=== PATIENT | male | born 1985 | race Caucasian/White ===

== ENCOUNTER 2023-05-02 16:20 | Inpatient (IN) | payer OTHER ==
[2023-05-02 16:52] VITALS: RESP 16
--- NOTE | 2023-05-02 21:33 | ED ---
General Adult HPI - General Source: patient, police, RN notes reviewed, old records reviewed Mode of arrival: ambulatory Limitations: no limitations <Ricardo Serra - Last Filed: 05/02/23 21:32> <Armand Young - Last Filed: 05/03/23 12:43> - General Chief complaint: Psychiatric Symptoms Stated complaint: Suicidal Time Seen by Provider: 05/02/23 21:00 - History of Present Illness Initial comments: 37-year-old male presents for psychiatric evaluation. Patient is hearing voices and had a suicide attempt. He has been petitioned by staff from the local [facility] where he has been for the past approximately 2 weeks. Patient had attempted to hang himself with a bedsheet. He denies physical complaints at the time my evaluation. No neck pain. He is actively eating [employer] at the time my evaluation. (Ricardo Serra) - Related Data Allergies Allergy/AdvReac Type Severity Reaction Status Date / Time No Known Allergies Allergy Verified 05/02/23 23:01 Review of Systems ROS Other: All systems not noted in ROS Statement are negative. <Ricardo Serra - Last Filed: 05/02/23 21:32> ROS Other: All systems not noted in ROS Statement are negative. <Armand Young - Last Filed: 05/03/23 12:43> ROS Statement: Those systems with pertinent positive or pertinent negative responses have been documented in the HPI. Past Medical History Past Medical History: No Reported History Past Surgical History: No Surgical Hx Reported Past Psychological History: ADD/ADHD, Bipolar, Depression Smoking Status: Current every day smoker <Ricardo Srera - Last Filed: 05/02/23 21:32> General Exam Limitations: no limitations General appearance: alert, in no apparent distress Head exam: Present: atraumatic, normocephalic Eye exam: Present: normal appearance, PERRL ENT exam: Present: normal exam Neck exam: Present: normal inspection, full ROM, other (No carotid bruit, no ecchymosis, no external signs of trauma). Absent: tenderness Respiratory exam: Present: normal lung sounds bilaterally. Absent: respiratory distress, wheezes Cardiovascular Exam: Present: regular rate, normal rhythm GI/Abdominal exam: Present: soft. Absent: distended, tenderness, guarding Neurological exam: Present: alert, oriented X3, CN II-XII intact. Absent: motor sensory deficit Psychiatric exam: Present: anxious, suicidal ideation Skin exam: Present: warm, dry, intact <Ricardo Serra Margo - Last Filed: 05/02/23 21:32> Course <Ricardo Serra Margo - Last Filed: 05/02/23 21:32> Vital Signs 05/02/23 16:26 Temperature 98.4 F Pulse Rate 89 Respiratory 16 Rate Blood Pressure 96/60 O2 Sat by Pulse 99 Oximetry - Reevaluation(s) Reevaluation #1: 05/02/23 21:33 Cleared for EPS (Ricardo Serra) Medical Decision Making <MaryseRicardo Aragon - Last Filed: 05/02/23 21:32> <Armand Young - Last Filed: 05/03/23 12:43> - Medical Decision Making Was pt. sent in by a medical professional or institution (, PA, COFFEE HOST, urgent care, hospital, or fci...) When possible be specific @ -[No] Did you speak to anyone other than the patient for history (EMS, parent, family, police, friend...)? What history was obtained from this source @ -[No] Did you review nursing and triage notes (agree or disagree)? Why? @ -[I reviewed and agree with nursing and triage notes] Were old charts reviewed (outside hosp., previous admission, EMS record, old EKG, old radiological studies, urgent care reports/EKG's, fci records)? Report findings @ -[No old charts were reviewed] Differential Diagnosis (chest pain, altered mental status, abdominal pain women, abdominal pain men, vaginal bleeding, weakness, fever, dyspnea, syncope, headache, dizziness, GI bleed, back pain, seizure, CVA, palpatations, mental health, musculoskeletal)? @ -Differential Mental Health Depression, anxiety, bipolar, psychosis, schizophrenia, borderline personality, situational depression, adjustment disorder, behavioral disorder, brain tumor, malingering, substance abuse, encephalopathy, medication reaction, dementia, hypothyroidism, degenerative neurologic disorder, lupus.... This is not meant to be all-inclusive list EKG interpreted by me (3pts min.). @ -[As above] X-rays interpreted by me (1pt min.). @ -[None done] CT interpreted by me (1pt min.). @ -[None done] U/S interpreted by me (1pt. min.). @ -[None done] What testing was considered but not performed or refused? (CT, X-rays, U/S, labs)? Why? @ -[None] What meds were considered but not given or refused? Why? @ -[None] Did you discuss the management of the patient with other professionals (professionals i.e. , PA, COFFEE HOST, lab, RT, psych nurse, social media marketing specialist, attorney lawyer, teacher, telecommunications officer, caseworker protective services)? Give summary @ -[No] Was smoking cessation discussed for >3mins.? @ -[No] Was critical care preformed (if so, how long)? @ -[No] Were there social determinants of health that impacted care today? How? (Homelessness, low income, unemployed, alcoholism, drug addiction, transportation, low edu. Level, literacy, decrease access to med. care, [facility], rehab)? @ -[No] Was there de-escalation of care discussed even if they declined (Discuss DNR or withdrawal of care, Hospice)? DNR status @ -[No] What co-morbidities impacted this encounter? (DM, HTN, Smoking, COPD, CAD, Cancer, CVA, ARF, Chemo, Hep., AIDS, mental health diagnosis, sleep apnea, morbid obesity)? @ -[None] Was patient admitted / discharged? Hospital course, mention meds given and route, prescriptions, significant lab abnormalities, going to OR and other pertinent info. @ -[hospital course] Undiagnosed new problem with uncertain prognosis? @ -[No] Drug Therapy requiring intensive monitoring for toxicity (Heparin, Nitro, Insulin, Cardizem)? @ -[No] Were any procedures done? @ -[No] Diagnosis/symptom? @ -[default] Acute, or Chronic, or Acute on Chronic? @ -[default] Uncomplicated (without systemic symptoms) or Complicated (systemic symptoms)? @ -[default] Side effects of treatment? @ -[No] Exacerbation, Progression, or Severe Exacerbation? @ -[No] Poses a threat to life or bodily function? How? (Chest pain, [place], [place], pneumonia, PE, COPD, DKA, ARF, appy, cholecystitis, CVA, Diverticulitis, Homicidal, Suicidal, threat to staff... and all critical care pts) @ -[No] (Ricardo Serra) Patient is a 37-year-old male that was pending psychiatric evaluation. Medically cleared by prior provider. Presented for suicide attempt. [facility] from [facility] when he attempted to [facility] himself with a sheet. EPS evaluated the patient and determined that he does meet inpatient criteria. Clinical certificate was completed by myself. Patient will be admitted to inpatient psychiatry. Diagnosis/symptom? @ -Suicidal behavior Acute, or Chronic, or Acute on Chronic? @ -Acute Uncomplicated (without systemic symptoms) or Complicated (systemic symptoms)? @ -Complicated Side effects of treatment? @ -None Exacerbation, Progression, or Severe Exacerbation] @ -No Poses a threat to life or bodily function? @ -Yes (Armand Yuong) - Lab Data Lab Results 05/03/23 Range/Units 00:00 Urine Opiates Screen Not Detected (NotDetected) Ur Oxycodone Screen Not Detected (NotDetected) Urine Methadone Screen Not Detected (NotDetected) Ur Barbiturates Screen Not Detected (NotDetected) U Tricyclic Antidepress Not Detected (NotDetected) Ur Phencyclidine Scrn Not Detected (NotDetected) Ur Amphetamines Screen Detected H (NotDetected) U Methamphetamines Scrn Detected H (NotDetected) U Benzodiazepines Scrn Not Detected (NotDetected) Urine Cocaine Screen Not Detected (NotDetected) U Marijuana (THC) Screen Not Detected (NotDetected) Disposition <Ricardo Serra - Last Filed: 05/02/23 21:32> Time of Disposition: 11:40 <Armand Young - Last Filed: 05/03/23 12:43> Clinical Impression: Suicidal behavior Disposition: ADMITTED IP TO THIS [facility] Condition: Stable Referrals: None,Stated [Primary Care Provider] - 1-2 days
[2023-05-03] MEDS: ONDANSETRON ODT 4 MG TAB PO STA (00:34)
[2023-05-03] MEDS: FAMOTIDINE 20 MG TAB PO STA (00:34)
[2023-05-03 00:46] LABS: Amphetamine Screen,Urine Detected (NotDetected); Barbiturate Screen,Urine Not Detected (NotDetected); Benzodiazepines Screen,Urine Not Detected (NotDetected); Cocaine Screen,Urine Not Detected (NotDetected); Methadone Screen, Urine Not Detected (NotDetected); Opiate Screen,Urine Not Detected (NotDetected); Oxycodone Screen, Urine Not Detected (NotDetected); Phencyclidine Screen,Urine Not Detected (NotDetected); Tricyclic Antidepressant,Urine Not Detected (NotDetected); Urn Cannabinoid Scrn Not Detected (NotDetected)
[2023-05-03] MEDS: NICOTINE 21MG/24HR PATCH TRANSDERM STA (07:31)
[2023-05-03] MEDS: LORazepam 1 MG TAB PO STA (07:48)
[2023-05-03] MEDS: HALOPERIDOL LACTATE 5 MG/ML 1 ML VIAL IM STA (11:23)
[2023-05-03] MEDS: LORazepam 2 MG/ML INJ IM STA (11:23)
[2023-05-03 15:44] LABS: Basophils # (A) 0.1 k/uL (0-0.2); Basophils % (A) 1 %; Eosinophils # (A) 0.1 k/uL (0-0.7); Eosinophils % (A) 1 %; HCT 47.3 % (39.0-53.0); Lymphocytes # (A) 1.9 k/uL (1.0-4.8); Lymphocytes % (A) 29 %; MCH 29.8 pg (25.0-35.0); MCHC 33.7 g/dL (31.0-37.0); MCV 88.4 fL (80.0-100.0); Mean Platelet Volume 7.7; Monocytes # (A) 0.4 k/uL (0-1.0); Monocytes % (A) 6 %; Neutrophils # (A) 3.9 k/uL (1.3-7.7); Neutrophils % (A) 61 %; Platelet Count 254 k/uL (150-450); RBC 5.36 m/uL (4.30-5.90); RDW 12.4 % (11.5-15.5); WBC 6.5 k/uL (3.8-10.6)
[2023-05-03 16:02] LABS: ALT 44 U/L (4-49); African American GFR (CKD) >90 (>60 ml/min/1.73 sqM); Albumin 4.3 g/dL (3.5-5.0); Anion Gap 8 mmol/L; Blood Urea Nitrogen 13 mg/dL (9-20); Calcium 9.5 mg/dL (8.4-10.2); Carbon Dioxide 27 mmol/L (22-30); Chloride 104 mmol/L (98-107); Glucose 98 mg/dL (74-99); Non-African American GFR(CKD) >90 (>60 ml/min/1.73 sqM); Sodium 139 mmol/L (137-145); Total Protein 7.1 g/dL (6.3-8.2)
[2023-05-03 16:26] LABS: AST 36 U/L (17-59)
[2023-05-03 16:27] LABS: Alkaline Phosphatase 60 U/L (38-126)
[2023-05-03] MEDS ORDERED: MAG HYDROX/AL HYDROX/SIMETH 355 ML BOTTLE PO PRN (16:44)
[2023-05-03] MEDS ORDERED: MAGNESIUM HYDROXIDE 2,400 MG/30 ML CUP PO PRN (16:44)
[2023-05-03] MEDS ORDERED: IBUPROFEN 600 MG TAB PO PRN (16:44)
[2023-05-03] MEDS ORDERED: ACETAMINOPHEN TAB 325 MG TAB PO PRN (16:44)
[2023-05-04 03:55] LABS: Chol/HDL Ratio 4.35 Ratio; LDL Cholesterol,Calculated 145.1 mg/dL (0.0-131.0)
[2023-05-04] MEDS: NICOTINE 21MG/24HR PATCH TRANSDERM SCH (09:56)
--- NOTE | 2023-05-04 11:17 | P.HPMEDMHU ---
History of Present Illness H&P Date: 05/04/23 Patient is a who was brought to the emergency department from detention where he was hearing voices and had a suicide attempt. Apparently he has been in detention for approximately the last 2 weeks and attempted to hang himself with a bedsheet. He was subsequently admitted to the mental health unit. We are asked to see him for medical H&P. Patient seen and examined at bedside. He currently denies any chest pain, shortness of breath, nausea, vomiting, diarrhea. He states he takes no medicati ons on the outpatient basis and has no history of chronic medical conditions. He reports a past smoking a pack a day. He denies any alcohol use or illicit substance use. Vital signs reviewed General: nontoxic, no distress, appears at stated age Derm: warm, dry Eyes: EOMI, no lid lag, anicteric sclera, pupils equal round reactive to light ENT: Nose and ears atraumatic Cardiovascular: S1S2 reg, no murmur, no edema Lungs: clear to auscultation bilateral, no rhonchi, no rales, no wheeze, no accessory muscle use Abdominal: soft, nontender to palpation, no guarding Ext: no gross muscle atrophy, no contractures Neuro: CN II-XII grossly intact, No focal neuro deficits Psych: Lethargic and withdrawn. Refuses to open eyes. Mumbles his answers. Assessment/Plan: 37-year-old male admitted to the mental health unit for suicidal ideation -Patient's LDL cholesterol was 145 and total cholesterol was 224.24 - based on ASCVD risk calculator his baseline 10-year risk is less than 5% and therefore he can focus on lifestyle modifications -Patient does not need statin at this time Nicotine dependency -Continue with nicotine patch 21 mcg daily Polysubstance abuse -Your psych management Imaging: None Data Review: Reviewed CBC, CMP, cholesterol levels, urine drug screen which are remarkable for total cholesterol 224 and LDL 145. Urine drug screen positive for methamphetamines and amphetamines. Thank you for allowing us to participate in the care of this pleasant patient. Do not hesitate to contact us with questions. Someone can be reached from the [facility] [place] hospitalist group all hours of the day at [phone] or via perfect serve. This dictation was prepared using [employer] voice recognition software. Though every attempt is made to correct errors during dictation some may still exist. Past Medical History Past Medical History: No Reported History Past Surgical History: No Surgical Hx Reported Smoking Status: Current every day smoker Medications and Allergies Home Medications Medication Instructions Recorded Confirmed Type No Known Home Medications 05/02/23 05/02/23 History Allergies Allergy/AdvReac Type Severity Reaction Status Date / Time No Known Allergies Allergy Verified 05/02/23 23:01 Physical Exam Osteopathic Statement: *. No significant issues noted on an osteopathic structural exam other than those noted in the History and Physical/Consult. Vitals: Intake and Output 05/03/23 05/04/23 05/04/23 22:59 06:59 14:59 Other: Weight 89.086 kg Cranial Nerve Examination - Cranial Nerves Cranial Nerve II- Optic: Intact Cranial Nerve III- Oculomotor: Intact Cranial Nerve IV- Trochlear: Intact Cranial Nerve V- Trigeminal: Intact Cranial Nerve - Abducens: Intact Cranial Nerve VII- Facial: Intact Cranial Nerve VIII- Auditory: Intact Cranial Nerve IX- Glossopharyngeal: Intact Cranial Nerve X- Vagus: Intact Cranial Nerve XI- Accessory: Intact Cranial Nerve XII- Hypoglossal: Intact Results CBC & Chem 7: 05/03/23 15:12 05/03/23 15:12 Labs: Abnormal Lab Results - Last 24 Hours (Table) 05/03/23 Range/Units 15:12 Cholesterol 224.00 H (0.00-200.00) mg/dL LDL Cholesterol, Calc 145.1 H (0.0-131.0) mg/dL
--- NOTE | 2023-05-04 14:56 | P.HP ---
Psychiatric H&P - . H&P Date: 05/04/23 History & Physical: Allergies Allergy/AdvReac Type Severity Reaction Status Date / Time No Known Allergies Allergy Verified 05/02/23 23:01 Vital Signs Temp 98.4 F 05/02/23 16:26 Pulse 89 05/02/23 16:26 Resp 16 05/02/23 16:26 BP 96/60 05/02/23 16:26 Pulse Ox 99 05/02/23 16:26 FiO2 Intake & Output 05/03/23 05/04/23 05/04/23 18:59 06:59 18:59 Weight 89.086 kg Laboratory Last Values WBC 6.5 k/uL (3.8-10.6) 05/03/23 15:12 RBC 5.36 m/uL (4.30-5.90) 05/03/23 15:12 Hgb 16.0 gm/dL (13.0-17.5) 05/03/23 15:12 Hct 47.3 % (39.0-53.0) 05/03/23 15:12 MCV 88.4 fL (80.0-100.0) 05/03/23 15:12 MCH 29.8 pg (25.0-35.0) 05/03/23 15:12 MCHC 33.7 g/dL (31.0-37.0) 05/03/23 15:12 RDW 12.4 % (11.5-15.5) 05/03/23 15:12 Plt Count 254 k/uL (150-450) 05/03/23 15:12 MPV 7.7 05/03/23 15:12 Neutrophils % 61 % 05/03/23 15:12 Lymphocytes % 29 % 05/03/23 15:12 Monocytes % 6 % 05/03/23 15:12 Eosinophils % 1 % 05/03/23 15:12 Basophils % 1 % 05/03/23 15:12 Neutrophils # 3.9 k/uL (1.3-7.7) 05/03/23 15:12 Lymphocytes # 1.9 k/uL (1.0-4.8) 05/03/23 15:12 Monocytes # 0.4 k/uL (0-1.0) 05/03/23 15:12 Eosinophils # 0.1 k/uL (0-0.7) 05/03/23 15:12 Basophils # 0.1 k/uL (0-0.2) 05/03/23 15:12 Sodium 139 mmol/L (137-145) 05/03/23 15:12 Potassium 5.0 mmol/L (3.5-5.1) 05/03/23 15:12 Chloride 104 mmol/L (98-107) 05/03/23 15:12 Carbon Dioxide 27 mmol/L (22-30) 05/03/23 15:12 Anion Gap 8 mmol/L 05/03/23 15:12 BUN 13 mg/dL (9-20) 05/03/23 15:12 Creatinine 0.78 mg/dL (0.66-1.25) 05/03/23 15:12 Est GFR (CKD-EPI)AfAm >90 (>60 ml/min/1.73 sqM) 05/03/23 15:12 Est GFR (CKD-EPI)NonAf >90 (>60 ml/min/1.73 sqM) 05/03/23 15:12 Glucose 98 mg/dL (74-99) 05/03/23 15:[address] Glu mg/dL 120 mg/dL 05/03/23 15:12 Hemoglobin A1c 5.8 % (<=6.0) 05/03/23 15:12 Calcium 9.5 mg/dL (8.4-10.2) 05/03/23 15:12 Total Bilirubin 1.0 mg/dL (0.2-1.3) 05/03/23 15:12 AST 36 U/L (17-59) 05/03/23 15:12 ALT 44 U/L (4-49) 05/03/23 15:12 Alkaline Phosphatase 60 U/L (38-126) 05/03/23 15:12 Total Protein 7.1 g/dL (6.3-8.2) 05/03/23 15:12 Albumin 4.3 g/dL (3.5-5.0) 05/03/23 15:12 Triglycerides 137.00 mg/dL (0.00-149.00) 05/03/23 15:12 Cholesterol 224.00 mg/dL (0.00-200.00) H 05/03/23 15:12 LDL Cholesterol, Calc 145.1 mg/dL (0.0-131.0) H 05/03/23 15:12 VLDL Cholesterol, Calc 27.40 mg/dL (5.00-40.00) 05/03/23 15:12 HDL Cholesterol 51.50 mg/dL (40.00-60.00) 05/03/23 15:12 Cholesterol/HDL Ratio 4.35 Ratio 05/03/23 15:12 TSH 1.130 mIU/L (0.465-4.680) 05/03/23 15:12 Urine Opiates Screen Not Detected (NotDetected) 05/03/23 00:00 Ur Oxycodone Screen Not Detected (NotDetected) 05/03/23 00:00 Urine Methadone Screen Not Detected (NotDetected) 05/03/23 00:00 Ur Barbiturates Screen Not Detected (NotDetected) 05/03/23 00:00 U Tricyclic Antidepress Not Detected (NotDetected) 05/03/23 00:00 Ur Phencyclidine Scrn Not Detected (NotDetected) 05/03/23 00:00 Ur Amphetamines Screen Detected (NotDetected) H 05/03/23 00:00 U Methamphetamines Scrn Detected (NotDetected) H 05/03/23 00:00 U Benzodiazepines Scrn Not Detected (NotDetected) 05/03/23 00:00 Urine Cocaine Screen Not Detected (NotDetected) 05/03/23 00:00 U Marijuana (THC) Screen Not Detected (NotDetected) 05/03/23 00:00 Influenza Type A (PCR) Not Detected (Not Detectd) 05/03/23 15:12 Influenza Type B (PCR) Not Detected (Not Detectd) 05/03/23 15:12 RSV (PCR) Not Detected (Not Detectd) 05/03/23 15:12 SARS-CoV-2 (PCR) Not Detected (Not Detectd) 05/03/23 15:12 05/04/23 09:34 IDENTIFYING DATA: Patient is a 37-year-old male, currently homeless, coming from care home, is , he has 3 kids, he is unemployed. HPI: Patient presented to the hospital ED with a petition from the high school social science teacher at the care home. Patient allegedly attempted to hang himself while he was still in care home. Petition also states that patient was hearing voices as well. Patient apparently has a history of traumatic brain injury. He was not on any psychiatric medications, not having any psychiatric follow-up. Patient was admitted to the psychiatric unit involuntarily. Patient was seen today laying in bed, appeared to have a disheveled appearance, was fairly nonchalant. He wanted to speak to group underwriter in his room today. He was fairly concrete, evasive and minimizing his need for being in the hospital. States that he only believes he needs medications for "ADHD". Patient claims that he does not know why he is in the hospital, claims that he did try to hang himself in the care home however claims that he does not know why he did that. He does claim that he does have irritability and impulse control issues. He claims that he was feeling "so depressed" and claims that he was "going crazy" and blamed it on being "locked up". States that he does not have any severe stressors at this time. He was minimizing his depression and anxiety. He did claim that he was hearing voices however not any longer. States that his sleep and appetite have been fair. He claims that he does not feel that he needs any medications at this time and was requesting be discharged, very poor insight and judgment. Patient denies any suicidal or homicidal ideations intent or plan. At this time patient denies any auditory or visual hallucinations. Patient denies any flight of ideas racing thoughts and increased in goal directed behavior. Patient admits to using cigarettes only, denies any other recreational drug use. Urine drug screen is positive for amphetamines and methamphetamine. PAST PSYCHIATRIC HISTORY: Patient states that he has history of psychosis. Patient denies being on any psychiatric medications. Patient denies any previous psychiatric hospitalizations. Patient denies any psychiatric outpatient follow-up. Claims that he attempted to hang himself when he was a child. PMH:As per ER note ALLERGIES: as per EMR CHEMICAL DEPENDENCY HISTORY: as per HPI FAMILY PSYCHIATRIC/SUBSTANCE USE HISTORY: Claims that his mother has bipolar disorder. SOCIAL HISTORY: Patient was born and raised in [place]. Claims that he is currently homeless, he is unemployed. Claims that he is , he has 3 kids. He states that he was brought into care home and charged with not paying child support. MENTAL STATUS EXAM: General Appearance: Patient appears to be disheveled in appearance, unshaven, stated age is alert, minimizing, concrete, fairly uncooperative. Patient appears to have poor hygiene and grooming. Behavior: Patient is seated without any agitated behavior. Cooperative. Speech: Patient's speech is fluent and nonpressured. [place], evasive Mood/Affect: Patient reports their mood is depressed, affect is congruent and constricted. Suicidality/Homicidality: Patient denies having any homicidal ideation intent or plan. Denies any suicidal ideations intent or plan Perceptions: Patient denies any visual hallucinations and denies any auditory hallucinations Though content/process: There is no evidence of any delusional thought content and thought process is linear and goal-directed. Minimizing his mood and his need for psychiatric help Memory and concentration: AOX3, grossly intact for the purposes of this session. Can spell "WORLD" backwards Judgment and insight: Poor STRENGTHS/WEAKNESSES: strength is that patient is resilient. Weakness is that patient has poor judgment and is impulsive INTELLECT: Average IMPRESSIONS: Psychosis unspecified, rule out schizoaffective disorder versus major depressive disorder with psychotic features Nicotine dependance methamphetamine use disorder Legal problems PLAN: -Patient is admitted under involuntary status to MHU for stabilization of psychiatric symptoms and safety. Patient has not signed adult voluntary form and medication consent and is placed in patient's chart. A second certification was completed and along with petition will be filed for court. -Medications : Depakote 500 mg daily mood stabilization/aggression, Seroquel 50 mg nightly for mood stabilization/psychosis/insomnia. -Ativan and Haldol PRN for agitation/aggression -Patient was counselled on substance abuse and was minimizing his use, does not want to go to rehab. -Patient was informed of the risks, benefits and side effects of the medication -Internal Medicine consult to perform medical evaluation and physical. -NRT -nicotine patch -SW on board for discharge planning. Encourage patient to participate in groups to work on coping skills. Will await deferral and court date.
[2023-05-04] MEDS: DIVALPROEX ER 500 MG TAB.ER.24H PO SCH (15:55)
[2023-05-04] MEDS: QUEtiapine 50 MG TAB PO SCH (20:12)
[2023-05-05] MEDS: HALOPERIDOL LACTATE 5 MG/ML 1 ML VIAL IM PRN (08:44)
[2023-05-05] MEDS: LORazepam 2 MG/ML INJ IM PRN (08:45)
--- NOTE | 2023-05-05 11:31 | P.PN ---
Progress Note - Text Progress Note Date: 05/05/23 Interval History: Patient was seen at the bedside and was directable and agreeable to speak with news writer. There was an incident this morning where Mr. Baxter was called on the patient for violent behavior. At this time patient is sleeping, wakes fairly easily. Patient told news writer he does not want to be here, news writer explained the court process to the patient. Patient is refusing medications at this time. Patent denies any suicidal or homical ideations, intent or plan. Patient denies any auditory, visual hallucinations and denies any paranoia or delusions. Patient continues to be focused on discharge, very poor insight and judgment. MENTAL STATUS EXAM: General Appearance: Patient appears to be disheveled in appearance, unshaven, stated age is alert, minimizing, concrete, fairly uncooperative. Patient appears to have poor hygiene and grooming. Behavior: Patient is seated without any agitated behavior. Uncooperative. Speech: Patient's speech is fluent and nonpressured. [place], evasive, irritable Mood/Affect: Patient reports their mood is depressed, affect is congruent and constricted. Suicidality/Homicidality: Patient denies having any homicidal ideation intent or plan. Denies any suicidal ideations intent or plan Perceptions: Patient denies any visual hallucinations and denies any auditory hallucinations Though content/process: There is no evidence of any delusional thought content and thought process is linear and goal-directed. Minimizing his mood and his ne ed for psychiatric help, focused on discharge. Memory and concentration: AOX3, grossly intact for the purposes of this session. Judgment and insight: Poor IMPRESSIONS: Psychosis unspecified, rule out schizoaffective disorder versus major depressive disorder with psychotic features Nicotine dependance methamphetamine use disorder Legal problems PLAN: -Patient is admitted under involuntary status to [facility] for stabilization of psychiatric symptoms and safety. Patient has not signed adult voluntary form and medication consent and is placed in patient's chart. A second certification was completed and along with petition will be filed for court. -Medications : Depakote 500 mg daily mood stabilization/aggression, DC Seroquel and replace with Invega p.o. 3 mg twice daily for mood stabilization/psychosis. -Ativan and Haldol PRN for agitation/aggression -NRT -nicotine patch -SW on board for discharge planning. Encourage patient to participate in groups to work on coping skills. Will await deferral and court date.
[2023-05-05] MEDS: PALIPERIDONE 3 MG TAB.ER.24 PO SCH (18:19)
[2023-05-05] MEDS: LORazepam 1 MG TAB PO PRN (18:19)
--- NOTE | 2023-05-06 11:01 | P.PN ---
Progress Note - Text Progress Note Date: 05/06/23 Interval History: Patient was seen at the bedside and was directable and agreeable to speak with automobile and property underwriter. Patient is very focused on discharge. He stated that if he stays in this unit, he will destroy everything, and "be a psychopath", or we can let him out, and he will be normal. Gasoline Truck Operator spoke with the patient about the court process once again, and also spoke with the patient about going onto a SANDERS, patient agreeable to the SANDERS. Patient minimizing need for treatment, and minimizing the situation that occurred. Patient continues to be fairly irritable with automobile and property underwriter, argumentative, focused on discharge. Patent denies any suicidal or homicidal ideations, intent or plan. Patient denies any auditory, visual hallucinations and denies any paranoia or delusions. Patient continues to be focused on discharge, very poor insight and judgment. MENTAL STATUS EXAM: General Appearance: Patient appears to be disheveled in appearance, unshaven, stated age is alert, minimizing, concrete, fairly uncooperative. Patient appears to have poor hygiene and grooming. Behavior: Patient is seated without any agitated behavior. Uncooperative. Irritable. Speech: Patient's speech is fluent and nonpressured. [place], evasive, irritable Mood/Affect: Patient reports their mood is depressed, affect is congruent and constricted. Suicidality/Homicidality: Patient denies having any homicidal ideation intent or plan. Denies any suicidal ideations intent or plan Perceptions: Patient denies any visual hallucinations and denies any auditory hallucinations Though content/process: There is no evidence of any delusional thought content and thought process is linear and goal-directed. Minimizing his mood and his need for psychiatric help, focused on discharge. Memory and concentration: AOX3, grossly intact for the purposes of this session. Judgment and insight: Poor IMPRESSIONS: Psychosis unspecified, rule out schizoaffective disorder versus major depressive disorder with psychotic features Nicotine dependance methamphetamine use disorder Legal problems PLAN: -Patient is admitted under involuntary status to [facility] for stabilization of psychiatric symptoms and safety. Patient has not signed adult voluntary form and medication consent and is placed in patient's chart. A second certification was completed and along with petition will be filed for court. Deferral will be today, at 11am, full hearing 05/17 at 9:30am -Medications : Will give Invega sustenna 234mg im today, increase Depakote 500 mg bid mood stabilization/aggression, increase Invega p.o. 6mg twice daily for mood stabilization/psychosis, decrease to 3mg po bid starting tuesday with plan to taper off. -Ativan and Haldol PRN for agitation/aggression -NRT -nicotine patch - on board for discharge planning. Encourage patient to participate in groups to work on coping skills. Will await deferral and court date. Deferral is today at 11am, full hearing is 05/17 at 9:30. If patient is transitioned onto long- acting injection then likely discharge early next week.
[2023-05-06] MEDS: PALIPERIDONE IM 234 MG/1.5 ML SYG IM STA (11:04)
[2023-05-06] MEDS: PALIPERIDONE 3 MG TAB.ER.24 PO STA (11:04)
[2023-05-06] MEDS ORDERED: LORazepam 2 MG/ML INJ IM PRN (11:42)
[2023-05-06] MEDS ORDERED: diphenhydrAMINE 50 MG/ML 1 ML VIAL IM PRN (11:43)
[2023-05-06] MEDS: haloperidoL 5 MG TAB PO PRN (14:25)
[2023-05-06] MEDS: LORazepam 2 MG/ML INJ IM STA (15:11)
[2023-05-06] MEDS: chlorproMAZINE 25 MG/ML 2 ML AMP IM STA (15:11)
--- NOTE | 2023-05-06 16:19 | XR ---
EXAMINATION TYPE: XR wrist limited 2 views RT, XR hand limited 2 views RT DATE OF EXAM: 05/06/2023 COMPARISON: NONE HISTORY: 37-year-old male with medial sided pain after punching a wall FINDINGS: Wrist: Limited 2 views. Slight cortical irregularity at the ulnar sided base of the fifth metacarpal. Correl ate for any point tenderness here. Metacarpal and distal radioulnar joint and midcarpal compartment a ppear intact. Mild degenerative spurring at the first MCP joint. Hand: Mild degenerative change first MCP joint. No acute fracture, subluxation, or dislocation. IMPRESSION: (Hand and wrist) 1. Slight cortical irregularity along the ulnar sided fifth metacarpal base. Correlate for any point tenderness to exclude a subtle nondisplaced fracture. 2. Otherwise, no acute osseous abnormality seen.
--- NOTE | 2023-05-06 18:24 | P.PN ---
Progress Note - Text Progress Note Date: 05/06/23 X-rays reviewed with Dr. Ramos, no surgical intervention or splinting warranted at this time. Recommends rest, ice and elevation, If pain or swelling increases then will place formal consult. Can follow with Dr. Delgado (Hand surgery) on discharge.
[2023-05-06] MEDS: DIVALPROEX 500 MG TABLET.DR PO SCH (20:45)
[2023-05-06] MEDS: PALIPERIDONE 6 MG TAB.ER.24 PO SCH (20:45)
--- NOTE | 2023-05-07 07:37 | P.PN ---
Progress Note - Text Progress Note Date: 05/07/23 Discussed with medicine. viewed Xrays. Non operative management. Volar splint if able due to pt condition for pain control. Non weight bearing to that hand.
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
[2023-05-08] MEDS: PALIPERIDONE 3 MG TAB.ER.24 PO SCH (09:30)
--- NOTE | 2023-05-08 16:57 | P.PN ---
Progress Note - Text Progress Note Date: 05/08/23 Interval history: Patient was seen with mental health worker at the nurses' station due to his agitation the previous day. Staff reports he was asleep all day, missed breakfast and lunch. He is being given something to eat and drink now. He states he just wanted to sleep most of the day away until he can be discharged, he is hoping for tomorrow. Review of chart shows he received Ativan 1 mg po x 3 for anxiety yesterday. He is less irritable today, appears more passive, reports his mood is "tired". No agitation so far today. At this time patient denies any suicidal or homicidal ideation, intent or plan. Denies any auditory or visual hallucinations. Patient denies any side effects from the medications and has been compliant with meds. Mental status exam: General Appearance: Patient appears to be stated age, and wearing hoody. Behavior: He appears tired, passively engaged. Speech: Patient's speech is fluent and non-pressured. Loud, somewhat slurred. Mood/Affect: Mood is "tired", affect is congruent and constricted. Suicidality/Homicidality: Patient denies having any suicidal or homicidal ideation intent or plan. Perceptions: Patient denies any auditory or visual hallucinations. Though content/process: There is no evidence of any delusional thought content and thought process is linear and goal-directed. Memory and concentration: AOX3, he appears to have difficulty processing and retaining new information. Judgment and insight: poor Assessment/Plan: Continue with current diagnosis. Patient continues to meet criteria for inpatient psychiatric admission for symptom stabilization and safety. Patient will be maintained on current psychotropic medication regimen. Use Ativan 1 mg po Q6H PRN for anxiety/agitation judiciously to minimize oversedation. Monitor for medication compliance and for any psychotropic medication side effects. Will continue to monitor ongoing response to treatment. Encouraged participation in milieu.
[2023-05-09 04:20] VITALS: BP 105/58; PULSE 109; TEMP 98.1
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
== END 2023-05-09 12:30 | disposition home or self-care (01) | DRG 885 ==
LOC: EC 16:20 → 3MHU 05-03 15:34
PROVIDERS: ADMIT Psychiatry & Neurology Psychiatry; ATTEND Psychiatry & Neurology Psychiatry
DX: F29 Unspecified psychosis not due to a substance or known physiological condition (principal); Z59.00 Homelessness unspecified; F15.10 Other stimulant abuse, uncomplicated; Z11.52 Encounter for screening for COVID-19; Z28.310 Unvaccinated for COVID-19; S62.91XA Unspecified fracture of right hand, initial encounter for closed fracture; F90.9 Attention-deficit hyperactivity disorder, unspecified type; F17.210 Nicotine dependence, cigarettes, uncomplicated; Z56.0 Unemployment, unspecified; Z59.6 Low income; Z65.3 Problems related to other legal circumstances; Z87.820 Personal history of traumatic brain injury; W22.8XXA Striking against or struck by other objects, initial encounter; Z71.41 Alcohol abuse counseling and surveillance of alcoholic; Z71.51 Drug abuse counseling and surveillance of drug abuser; Z81.8 Family history of other mental and behavioral disorders
CPT/HCPCS: 80053; 80061; 80306; 82075; 83036; 84443; 85025; 87636; 96372; 99285